=== PATIENT | female | born 1950 | race Caucasian/White ===

== ENCOUNTER 2020-05-11 12:13 | Emergency (ER) | payer OTHER, MEDICARE ==
[~2020-05-11] VITALS: Ht 162.6 cm; Wt 83.1 kg
[~2020-05-11 12:13] MED LIST: AMBIEN10 MG PO; ASPIRIN81 M1 PO; ATORVASTATIN CA10 MG PO; CALCIO DEL MAR500 MG PO; D3 DOTS2000 UNIT PO; FOLIC ACID1 MG PO; PREDNISONE20 MG PO; TREXALL10 MG PO
[2020-05-11] MEDS ORDERED: LEXAPRO5 MG PO (12:36)
[2020-05-11] MEDS ORDERED: HUMIRA10 MG/0.2 (12:36)
[2020-05-11] MEDS ORDERED: DITROPAN XL5 MG PO (12:36)
[2020-05-11] MEDS ORDERED: KETOROLAC TROMETHAMINE 60 MG/2 ML VIAL IM ONE (13:15)
[2020-05-11] MEDS ORDERED: CYCLOBENZAPRINE HCL 10 MG TAB PO ONE (13:15)
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
--- OUTSIDE RECORDS SUMMARY | 2020-05-11 14:02 | XMS REPORT | Continuity of Care Document ---
Author Author [employer] Address Unknown Phone Unavailable Care Team Providers Care Tray Packer Name Role Phone [employer] Information Exchange Unavailable Un available Problems Problem Status Onset Date Classification Date Reported Comments Source Chronic Ethmoidal Sinusitis Ac tive 11/09/2013 [facility] Chronic Maxillary Sinusitis Ac tive 11/09/2013 [facility] Asthma Active 11/09/2013 [facility] Polymyalgia Rheumatica Active 11/09/2013 [facility] Oral Thrush Active 03/22/2013 [facility] Muscle Spasm Active 11/09/2013 [facility] Insomnia Active 11/09/2013 [facility] Rheumatoid Arthritis Active 11/09/2013 [facility] Urinary Tract Infection Active 11/09/2013 [facility] Herpes Simplex Active 11/09/2013 [facility] Hyperlipidemia Active 11/09/2013 [facility] Fatigue Active 11/09/2013 [facility] Vitamin B12 Deficiency Active 11/09/2013 [facility] 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 Active 11/09/2013 [facility] Vaccines Prophylactic Need Against Influenza Active 11/09/2013 [facility] Adrenal Insufficiency Active 11/09/2013 [facility] Psoriatic Arthropathy Active 11/09/2013 [facility] Herpes Simplex Type I Active 11/09/2013 [facility] Acute Pharyngitis Active 11/09/2013 [facility] Malaise Active 11/09/2013 [facility] Medications Medication Details Route Status Patient Instructions Ordering Provider Order Date Source Amoxicillin-Pot Clavulanate 500-125 MG Oral Tablet ; Start Date: 11/09/2013; End Date: (Active) Active 11/09/2013 [facility] Acyclovir 400 MG Oral Tablet ; Start Date: 10/25/2013; End Date: (Active) Active 10/25/2013 [facility] Zovirax 5 % External Cream ; S tart Date: 10/05/2013; End Date: (Active) Active 10/05/2013 [facility] Humira Pen 40 MG/0.8ML Subcutaneous Kit ; Start Date: 08/15/2013; End Date: (Active) Active 08/15/2013 [facility] PredniSONE 5 MG Oral Tablet ; Start Date: 07/13/2013; End Date: (Active) Active 07/13/2013 [facility] Atorvastatin Calcium 10 MG Oral Tablet ; Start Date: 06/02/2013 (Active) Active 06/02/2013 [facility] Escitalopram Oxalate 10 MG Oral Tablet ; Start Date: 06/02/2013; End Date: (Active) Active 06/02/2013 [facility] TraZODone HCl 50 MG Oral Tablet ; Start Date: 06/02/2013; End Date: (Active) Active 06/02/2013 [facility] Atorvastatin Calcium 20 MG Oral Tablet ; Start Date: 06/02/2013 (Active) Active 06/02/2013 [facility] Acyclovir 200 MG Oral Capsule ; Start Date: 05/26/2013; End Date: (Active) Active 05/26/2013 [facility] Sulfamethoxazole-TMP DS 800-160 MG Oral Tablet ; Start Date: 04/20/2013; End Date: (Active) Active 04/20/2013 [facility] Azo Dine 95 MG Oral Tablet ; S tart Date: 04/20/2013 (Active) Active 04/20/2013 [facility] PredniSONE 2.5 MG Oral Tablet ; Start Date: 02/14/2013; End Date: (Active) Active 02/14/2013 [facility] Enbrel SureClick 50 MG/ML Subcutaneous Solution ; Start Date: 11/01/2012; End Date: (Active) Active 11/01/2012 [facility] PredniSONE 10 MG Oral Tablet ; Start Date: 08/09/2012; End Date: (Active) Active 08/09/2012 [facility] Methotrexate 2.5 MG Oral Tablet ; Start Date: 04/30/2012 (Active) Active 04/30/2012 [facility] Folic Acid 1 MG Oral Tablet ; Start Date: 04/30/2012; End Date: (Active) Active 04/30/2012 [facility] Cyclobenzaprine HCl 10 MG Oral Tablet ; Start Date: 04/30/2012; End Date: (Active) Active 04/30/2012 [facility] Naproxen 500 MG Oral Tablet ; Start Date: 04/30/2012; End Date: (Active) Active 04/30/2012 [facility] Zolpidem Tartrate 10 MG Oral Tablet ; Start Date: 03/19/2012 (Active) Active 03/19/2012 [facility] PredniSONE 5 MG Oral Tablet ; Start Date: 12/10/2011; End Date: (Active) Active 12/10/2011 [facility] Calcium 600 MG Oral Tablet ; S tart Date: 10/20/2011 (Active) Active 10/20/2011 [facility] Vitamin D3 TABS (Active) Active [facility] Lipitor 10 MG Oral Tablet (Ac tive) Active [facility] Vitamin D3 2000 UNIT Oral Tablet (Active) Active [facility] Ibuprofen 200 MG Oral Tablet (Active) Active [facility] Aspirin 81 MG Oral Tablet (Ac tive) Active [facility] B-12 TABS (Active) Active [facility] Allergies, Adverse Reactions, Alerts Substance Category Reaction Severity Reaction type Status Date Reported Comments Source Avelox TABS drug allergy drug allergy Active [facility] Immunizations Immunization Date Given Site Status Last Updated Comments Source Fluzone Intramuscular Injectable 06/02/2013 completed [facility] Tdap 06/24/2012 completed [facility] Hepatitis A 01/18/2009 completed [facility] Tdap completed [facility] Hepatitis A completed [facility] Pneumo completed [facility] Zostavax 61577 UNT/0.65ML Subcutaneous S olution Reconstituted completed [facility] Influenza completed [facility] Results No Data Provided for This Section Pathology Reports No Data Provided for This Section Diagnostic Reports No Data Provided for This Section Consultation Notes No Data Provided for This Section Discharge Summaries No Data Provided for This Section History and Physicals No Data Provided for This Section Vital Signs No Data Provided for This Section Encounters Location Location Details Encounter Type Encounter Number Reason For Visit Attending Provider ADM Date DC Date Status Source AUDIT [id number] 07/26/2012 07/26/2012 [facility] AUDIT [id number] 08/29/2012 08/30/2012 [facility] AUDIT [id number] 09/03/2012 09/03/2012 [facility] Kathy OCONNOR jaron: STANISLAV JOSE, Status: Pen, Time: 11:00 AM [id number] 11/01/19 13 09/03/2012 [facility] AUDIT [id number] 11/01/2012 11/02/2012 [facility] AUDIT [id number] 11/10/2012 11/11/2012 [facility] JAKEP Provi jaron: CORI RODRIGUEZ, Status: Pen, Time: 10:45 AM [id number] 11/12/19 13 11/11/2012 [facility] AUDIT [id number] 12/28/2012 12/29/2012 [facility] AUDIT [id number] 01/26/2013 01/27/2013 [facility] EST, Provi jaron: STANISLAV JOSE, Status: Pen, Time: 11:30 AM [id number] 02/08/20 13 01/27/2013 [facility] AUDIT [id number] 02/14/2013 02/15/2013 [facility] AUDIT [id number] 02/26/2013 02/27/2013 [facility] AUDIT [id number] 03/21/2013 03/22/2013 [facility] AUDIT [id number] 05/14/2013 05/14/2013 [facility] EST, Provi jaron: STANISLAV JOSE, Status: Pen, Time: 11:30 AM [id number] 05/16/20 13 05/14/2013 [facility] AUDIT [id number] 05/16/2013 05/16/2013 [facility] AUDIT [id number] 05/26/2013 05/26/2013 [facility] ECL, Provi jaron: CORI RODRIGUEZ, Status: Pen, Time: 2:00 PM [id number] 06/02/20 13 05/26/2013 [facility] AUDIT [id number] 06/05/2013 06/05/2013 [facility] AUDIT [id number] 06/09/2013 06/09/2013 [facility] AUDIT [id number] 06/10/2013 06/10/2013 [facility] AUDIT [id number] 06/20/2013 06/20/2013 [facility] AUDIT [id number] 07/17/2013 07/17/2013 [facility] AUDIT [id number] 07/23/2013 07/23/2013 [facility] EST Provi jaron: STANISLAV JOSE, Status: Pen, Time: 2:00 PM [id number] 08/15/20 13 07/23/2013 [facility] AUDIT [id number] 08/20/2013 08/20/2013 [facility] AUDIT [id number] 09/05/2013 09/05/2013 [facility] AUDIT [id number] 09/06/2013 09/06/2013 [facility] AUDIT [id number] 10/05/2013 10/05/2013 [facility] AUDIT [id number] 11/09/2013 11/09/2013 [facility] Kathy OCONNOR jaron: DAMONSTANISLAV, Status: Pen, Time: 2:00 PM [id number] 11/15/19 14 10/05/2013 [facility] Procedures No Data Provided for This Section Assessment and Plan No Data Provided for This Section Plan of Care Plan of Care Date Source [L] Lipid Profile 08/10/2013 Routine[QLH ] HEPATIC FUNCTION PANEL 08/10/2013 Routine[QLH] CREATINE KINASE, TOTAL 08/10/2013 Routine 08/20/2013 [facility] [L] Lipid Profile 08/10/2013 Routine[QLH ] HEPATIC FUNCTION PANEL 08/10/2013 Routine[QLH] CREATINE KINASE, TOTAL 08/10/2013 Routine 07/23/2013 [facility] [QLH] HEPATIC FUNCTION PANEL 08/10/2013 Routine[QLH] CREATINE KINASE, TOTAL 08/10/2013 Routine[L] Lipid Profile 08/10/2013 Routine 07/17/2013 [facility] [QLH] CORTISOL, TOTAL 06/20/2013 Routine 06/20/2013 [facility] [QLH] LIPID PANEL 06/02/2013 Routine[QLH ] TSH, 3RD GENERATION W/REFLEX TO FT4 06/02/2013 Routine[QLH] METHYLMALONIC ACID 06/02/2013 Routine 06/10/2013 [facility] [QLH] LIPID PANEL 06/02/2013 Routine[QLH ] TSH, 3RD GENERATION W/REFLEX TO FT4 06/02/2013 Routine[QLH] METHYLMALONIC ACID 06/02/2013 Routine 06/09/2013 [facility] [QLH] LIPID PANEL 06/02/2013 Routine[QLH ] TSH, 3RD GENERATION W/REFLEX TO FT4 06/02/2013 Routine[QLH] METHYLMALONIC ACID 06/02/2013 Routine 06/05/2013 [facility] Social History Social History Date Source Former Smoker (V15.82); (Active) Marital History - Single (Active) 11/09/2013 [facility] Family History No Data Provided for This Section Advance Directives Order Name Results Value Date Source Advance Directives Advance Dir ectives No Advance Directives available. 11/09/2013 [facility] Advance Directives Advance Dir ectives No Advance Directives available. 10/05/2013 [facility] Advance Directives Advance Dir ectives No Advance Directives available. 09/06/2013 [facility] Advance Directives Advance Dir ectives No Advance Directives available. 09/05/2013 [facility] Advance Directives Advance Dir ectives No Advance Directives available. 08/20/2013 [facility] Advance Directives Advance Dir ectives No Advance Directives available. 07/23/2013 [facility] Advance Directives Advance Dir ectives No Advance Directives available. 07/17/2013 [facility] Advance Directives Advance Dir ectives No Advance Directives available. 06/20/2013 [facility] Advance Directives Advance Dir ectives No Advance Directives available. 06/10/2013 [facility] Advance Directives Advance Dir ectives No Advance Directives available. 06/09/2013 [facility] Advance Directives Advance Dir ectives No Advance Directives available. 06/05/2013 [facility] Advance Directives Advance Dir ectives No Advance Directives available. 05/26/2013 [facility] Advance Directives Advance Dir ectives No Advance Directives available. 05/16/2013 [facility] Advance Directives Advance Dir ectives No Advance Directives available. 05/14/2013 [facility] Advance Directives Advance Dir ectives No Advance Directives available. 03/22/2013 [facility] Advance Directives Advance Dir ectives No Advance Directives available. 02/27/2013 [facility] Advance Directives Advance Dir ectives No Advance Directives available. 02/15/2013 [facility] Advance Directives Advance Dir ectives No Advance Directives available. 01/27/2013 [facility] Advance Directives Advance Dir ectives No Advance Directives available. 12/29/2012 [facility] Advance Directives Advance Dir ectives No Advance Directives available. 11/11/2012 [facility] Advance Directives Advance Dir ectives No Advance Directives available. 11/02/2012 [facility] Advance Directives Advance Dir ectives No Advance Directives available. 09/03/2012 [facility] Advance Directives Advance Dir ectives No Advance Directives available. 08/30/2012 [facility] Advance Directives Advance Dir ectives No Advance Directives available. 07/26/2012 [facility] Functional Status No Data Provided for This Section
--- OUTSIDE RECORDS SUMMARY | 2020-05-11 14:03 | XMS REPORT | Continuity of Care Document ---
Author Author [facility] t Organization [facility] Address [address] [place] [address] Phone Unavailable Care Team Providers Care Parking Manager Name Role Phone NOLBERTO DAVENPORT M.D. Attphys UnavailJANUSZ Haas M.D. Attphys Unavailable CAT SHANE APRN Attphys Unavailable BOUCHRA WARD P.A. Attphys Unavailable ZENIA PRATHER NP Attphys Unavailable MIKHAIL HARTMAN M.D. Attphys Unavailable JAN COLLADO M.D. Attphys Unavailable GEORGINA CHADWICK M.D. Attphys Unavailable Payers Payer Name Policy Type Policy Number Effective Date Expiration Date S ource Problems Condition Name Condition Details Condition Category Status Onset Date Resolution Date Last Treatment Date Treating Clinician Comments Source History of Abnormal liver enzymes History of Abnormal liver enzy mes Problem Resolved [facility] History of basal cell carcinoma History of basal cell carcinoma Problem Resolved [facility] History of Chronic ethmoidal sinusitis History of Chronic et hmoidal sinusitis Problem Resolved [facility] History of Chronic maxillary sinusitis History of Chronic ma xillary sinusitis Problem Resolved [facility] History of Chronic pain History of Chronic pain Problem Resolved [facility] History of diverticulitis History of diverticulitis Problem Resolved [facility] History of Dysuria History of Dysuria Problem Resolved [facility] History of fatigue History of fatigue Problem Resolved [facility] History of herpes labialis History of herpes labialis Problem Resolved [facility] History of hypercholesterolemia History of hypercholesterolemia Problem Resolved [facility] History of Malaise History of Malaise Problem Resolved [facility] History of rheumatoid arthritis History of rheumatoid arthritis Problem Resolved [facility] History of Polyp of sigmoid colon History of Polyp of sigmoid co renan Problem Resolved [facility] History of Strep tonsillitis History of Strep tonsillitis Problem Re solved [facility] History of urinary tract infection History of urinary tract infe ction Problem Resolved [facility] History of Wheezing History of Wheezing Problem Resolved [facility] Adrenal insufficiency Adrenal insufficiency Problem Active [facility] At low risk for fall At low risk for fall Problem Active [facility] Depression screening negative Depression screening negative Problem Active [facility] Insomnia Insomnia [facility] Long-term use of immunosuppressant medication Long-ter m use of immunosuppressant medication Problem Active [facility] Skin neoplasm Skin neoplasm Problem Active [facility] Umbilical hernia Umbilical hernia Problem Active [facility] Vitamin B12 deficiency Vitamin B12 deficiency Problem Active [facility] Vitamin D insufficiency Vitamin D insufficiency Problem Active [facility] Cervicalgia Cervicalgia Problem Active [facility] Actinic keratoses Actinic keratoses Problem Active [facility] Osteopenia Osteopenia [facility] Hepatic hemangioma Hepatic hemangioma Problem Active [facility] Back pain Back pain Problem Active [facility] Genital herpes Genital herpes Problem Active [facility] Asthma Asthma Problem [facility] Blurry vision, bilateral Blurry vision, bilateral Problem Active [facility] Right facial numbness Right facial numbness Problem Active [facility] BMI 30.0-30.9,adult BMI 30.0-30.9,adult Problem Active [facility] Abnormal brain CT Abnormal brain CT Problem Active [facility] Calcified cerebral meningioma Calcified cerebral meningioma Problem Active [facility] Major depressive disorder, recurrent, moderate Major d epressive disorder, recurrent, moderate Problem Active [facility] Allergic rhinitis, seasonal Allergic rhinitis, seasonal Problem Active [facility] Hyperlipidemia Hyperlipidemia Problem Active [facility] Insulin resistance Insulin resistance Problem Active [facility] Psoriatic arthropathy Psoriatic arthropathy Problem Active [facility] Urinary incontinence, mixed Urinary incontinence, mixed Problem Active [facility] Chronic Ethmoidal Sinusitis Ch ronic Ethmoidal Sinusitis Active 11/09/2013 [facility] Problem Active 2013-11-09 23:02: 12 [facility] Chronic Maxillary Sinusitis Ch ronic Maxillary Sinusitis Active 11/09/2013 [facility] Problem Active 2013-11-09 23:02: 12 Elysia Sheth Asthma Asth ma Active 11/09/2013 [facility] Problem Active 2013-11-09 23:02:12 [facility] Polymyalgia Rheumatica Poly myalgia Rheumatica Active 11/09/2013 [facility] Problem Active 2013-11-09 23:02:12 [facility] Oral Thrush Oral Thrush Active 03/22/2013 [facility] Problem Active 2013-03-22 03:50:52 Elysia Sheth Muscle Spasm Musc le Spasm Active 11/09/2013 [facility] Problem Active 2013-11-09 23:02:12 Kang riamilena Sheth Insomnia Inso mnia Active 11/09/2013 [facility] Problem Active 2013-11-09 23:02:12 [facility] Rheumatoid Arthritis Rheu matoid Arthritis Active 11/09/2013 [facility] Problem Active 2013-11-09 23:02:12 [facility] Urinary Tract Infection Urin pedro Tract Infection Active 11/09/2013 [facility] Problem Active 2013-11-09 23:02: 12 [facility] Herpes Simplex Herp es Simplex Active 11/09/2013 [facility] Problem Active 2013-11-09 [facility] Hyperlipidemia Hype rlipidemia Active 11/09/2013 [facility] Problem Active 2013-11-09 23:02:12 [facility] [place] Fatigue Fati anders Active 11/09/2013 [facility] Problem Active 2013-11-09 23:02:12 [facility] [place] Vitamin B12 Deficiency Mayra min B12 Deficiency Active 11/09/2013 [facility] Problem Active 2013-11-09 23:02:12 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 Active 11/09/2013 [facility] Problem Active 2013-11-09 23:02:12 [facility] Vaccines Prophylactic Need Against Influenza Vaccines Prophylactic Need Against Influenza Active 11/09/2013 [facility] Problem Active 2013-11-09 23:02:12 [facility] [place] Adrenal Insufficiency Adre nal Insufficiency Active 11/09/2013 [facility] Problem Active 2013-11-09 23:02:12 [facility] Psoriatic Arthropathy Psor iatic Arthropathy Active 11/09/2013 [facility] Problem Active 2013-11-09 23:02:12 [facility] Acute Pharyngitis Acut e Pharyngitis Active 11/09/2013 [facility] Problem Active 2013-11-09 23:02:12 [facility] [place] Allergies, Adverse Reactions, Alerts Allergy Name Allergy Type Status Severity Reaction(s) Onset Date Inacti ve Date Treating Clinician Comments Source methotrexate DA Active U 2019-11-09 00:00:00 [facility] No Known Contrast Allergies DA Active U 2007-01-22 00:00: 00 [facility] No Known Drug Allergies DA Active U 2007-01-22 00:00:00 [facility] No Known Food Allergies DA Active U 2007-01-22 00:00:00 [facility] No Known Other Allergies DA Active U 2007-01-22 00:00:00 [facility] Avelox TABS Allergy to drug (finding) Active [facility] methotrexate Allergy to drug (finding) Active [facility] Avelox TABS Avelox TABS Active [facility] Family History Family Member Diagnosis Comments Start Date Stop Date Source Unknown Family Member Family history of malignant neoplasm o f stomach Maternal Relatives [facility] Grandfather Family history of skin cancer [facility] Mother Family history of cerebrovascular accident [facility] Social History Social Habit Start Date Stop Date Quantity Comments Source Social History 2013-11-09 23:02:12 2013-11-09 23:02:12 [facility] Smoking Status Start Date Stop Date Source Ex-smoker (finding) [facility] Medications Ordered Medication Name Filled Medication Name Start Date Stop Da te Current Medication? Ordering Clinician Indication Dosage Frequency Signature (SIG) Comments Components Source Desloratadine 5 MG Oral Tablet Desloratadine 5 MG Oral Table t 2020-02-01 00:00:00 Yes JANUSZ LOWE M.D. QD TAKE 1 TABLET DAILY NEEDED FOR ALLERGIES. [facility] Lidocaine Viscous HCl - 2 % Mouth/Throat Solution Lido ed Viscous HCl - 2 % Mouth/Throat Solution 2019-11-09 00:00:00 Yes CAT SVITLANA COFFEE BAR ATTENDANT USE 5ML EVERY 2 HOURS NEEDED. [facility] Humira Pen 40 MG/0.8ML Subcutaneous Pen-injector Kit H umira Pen 40 MG/0.8ML Subcutaneous Pen-injector Kit 2017-12-03 00:00:00 Yes NOLBERTO DAVENPORT M.D. Inject 40 mg SC every 14 days. [facility] Ibuprofen 600 MG Oral Tablet Ibuprofen 600 MG Oral Tablet 2017-10-09 8 00:00:00 Yes NOLBERTO DAVENPORT M.D. 1 Q12H T EMELINA 1 TABLET BY MOUTH EVERY 12 HOURS NEEDED WITH FOOD FOR PAIN [facility] Tolterodine Tartrate ER 4 MG Oral Capsule Extended Rel ease 24 Hour Tolterodine Tartrate ER 4 MG Oral Capsule Extended Release 24 Hour 2015-11-01 00:00:00 Yes JANUSZ LOWE M.D. 1 QD TAKE 1 CAPSULE DAILY [facility] Vitamin D3 2000 UNIT Oral Tablet 2013-11-09 23:02:12 Yes (Active) Elysia Sheth Ibuprofen 200 MG Oral Tablet 2013-11-09 23:02:12 Yes (Active) Elysia Sheth Amoxicillin-Pot Clavulanate 500-125 MG Oral Tablet 2013-11 06:00:00 Yes ; Start Date: 11/09/2013; End Date: 09/1899 (Active) Elysia Sheth Acyclovir 400 MG Oral Tablet 2013-10-25 06:00:00 Yes ; Start Date: 10/25/2013; End Date: (Active) Elysia Sheth Aspirin 81 MG Oral Tablet 2013-10-05 18:31:20 Yes (Active) Elysia Sheth B-12 TABS 2013-10-05 18:31:20 Yes (Active) Elysia Sheth Zovirax 5 % External Cream 2013-10-05 06:00:00 Yes ; Start Date: 10/05/2013; End Date: (Active) Elysia Sheth Humira Pen 40 MG/0.8ML Subcutaneous Kit 2013-08-15 06:00:00 Yes ; Start Date: 08/15/2013; End Date: (Active) Elysia Sheth PredniSONE 5 MG Oral Tablet 2013-07-13 06:00:00 Yes ; Start Date: 07/13/2013; End Date: (Active) Elysia Sheth Atorvastatin Calcium 10 MG Oral Tablet 2013-06-02 05:00:00 Yes ; Start Date: 06/02/2013 (Active) Elysia Sheth Escitalopram Oxalate 10 MG Oral Tablet 2013-06-02 05:00:00 Yes ; Start Date: 06/02/2013; End Date: (Active) Elysia Sheth TraZODone HCl 50 MG Oral Tablet 2013-06-02 05:00:00 Yes ; Start Date: 06/02/2013; End Date: (Active) [facility] Atorvastatin Calcium 20 MG Oral Tablet 2013-06-02 05:00:00 Yes ; Start Date: 06/02/2013 (Active) Elysia Sheth Atorvastatin Calcium 20 MG Oral Tablet Atorvastatin Calcium 20 MG Oral Tablet 2013-06-02 00:00:00 Yes JANUSZ LOWE M.D. QD TAKE 1 TABLET AT BEDTIME. [facility] Escitalopram Oxalate 10 MG Oral Tablet Escitalopram Oxalate 10 MG Oral Tablet 2013-06-02 00:00:00 Yes JANUSZ LOWE M.D. 1 QD JUAN RAMON E 1 TABLET DAILY [facility] Acyclovir 200 MG Oral Capsule 2013-05-26 05:00:00 Yes ; Start Date: 05/26/2013; End Date: (Active) Elysia Sheth Sulfamethoxazole-TMP DS 800-160 MG Oral Tablet 2013-04-20 05:00: 00 Yes ; Start Date: 04/20/2013; End Date: (Active ) Elysia Sheth Azo Dine 95 MG Oral Tablet 2013-04-20 05:00:00 Yes ; Start Date: 04/20/2013 (Active) Elysia Sheth PredniSONE 2.5 MG Oral Tablet 2013-02-14 05:00:00 Yes ; Start Date: 02/14/2013; End Date: (Active) Elysia Sheth Enbrel SureClick 50 MG/ML Subcutaneous Solution 2012-11-01 06:00 :00 Yes ; Start Date: 11/01/2012; End Date: (Active ) Elysia Sheth Vitamin D3 TABS 2012-08-30 02:34:53 Yes (Ac tive) Elysia Sheth PredniSONE 10 MG Oral Tablet 2012-08-09 06:00:00 Yes ; Start Date: 08/09/2012; End Date: (Active) Elysia Domenic Lipitor 10 MG Oral Tablet 2012-07-26 22:44:12 Yes (Active) Elysia Sheth Methotrexate 2.5 MG Oral Tablet 2012-04-30 05:00:00 Yes ; Start Date: 04/30/2012 (Active) Elysia sullivan Folic Acid 1 MG Oral Tablet 2012-04-30 05:00:00 Yes ; Start Date: 04/30/2012; End Date: (Active) Elysia Sheth Cyclobenzaprine HCl 10 MG Oral Tablet 2012-04-30 05:00:00 Y es ; Start Date: 04/30/2012; End Date: (Active) Elysia Sheth Naproxen 500 MG Oral Tablet 2012-04-30 05:00:00 Yes ; Start Date: 04/30/2012; End Date: (Active) Elysia Sheth Zolpidem Tartrate 10 MG Oral Tablet 2012-03-19 05:00:00 Yes ; Start Date: 03/19/2012 (Active) Elysia sullivan PredniSONE 5 MG Oral Tablet 2011-12-10 05:00:00 Yes ; Start Date: 12/10/2011; End Date: (Active) Elysia Sheth Calcium 600 MG Oral Tablet 2011-10-20 06:00:00 Yes ; Start Date: 10/20/2011 (Active) [facility] [place] Vitamin D3 50 MCG (2000 UT) Oral Tablet Vitamin D3 50 MCG (2 000 UT) Oral Tablet Yes PT. TAKING TAB. QD [facility] Calcium 600 + D TABS Calcium 600 + D TABS Yes 1 QD TAKE 1 TABLET DAILY. [facility] Immunizations Ordered Immunization Name Filled Immunization Name Date Status Comments Source Fluzone High-Dose 0.5 ML Intramuscular Suspension Prefilled Syringe 2019-06-22 00:00:00 Completed [facility] Pneumovax 23 25 MCG/0.5ML Injection Injectable 2018-06 12:16:00 Completed [facility] Fluzone High-Dose SUSP 2018-05-26 00:00:00 Completed [facility] Fluzone High-Dose 0.5 ML Intramuscular Suspension Prefilled Syringe 2018-05-08 00:00:00 Completed [facility] Fluzone Quadrivalent 0.5 ML Intramuscular Suspension 2017-05-29 00:00:00 Completed [facility] Fluzone High-Dose SUSP 2017-05-29 00:00:00 Completed [facility] Fluzone High-Dose SUSP 2016-07-16 15:30:00 Completed [facility] Prevnar 13 Intramuscular Suspension 2015-11-01 15:38:00 Co mpleted [facility] Fluzone High-Dose SUSP 2015-09-17 00:00:00 Completed [facility] Fluzone INJ 2014-07-13 00:00:00 [facility]pleted [facility] Fluzone INJ 2013-06-02 00:00:00 Completed [facility] [place] [facility] Zostavax 60377 UNT/0.65ML Subcutaneous Solution Reconstitute d 2012-11-11 00:00:00 Completed [facility] Tdap 2012-06-24 00:00:00 Completed [facility] [place] [facility] Pneumo 2011-07-09 00:00:00 Completed [facility] Influenza 2011-07-09 00:00:00 Completed [facility] Hepatitis A 2010-01-14 00:00:00 Completed [facility] Hepatitis A 2009-01-18 00:00:00 Completed [facility] Shingrix 50 MCG/0.5ML Intramuscular Suspension Reconstituted Unknown Completed 01/20/2019 @ [facility] Shingrix 50 MCG/0.5ML Intramuscular Suspension Reconstituted Unknown Completed 03/23/2019 @ [facility] Vital Signs Vital Name Observation Time Observation Value Comments Source Systolic blood pressure 2020-03-29 13:52:00 101 mm[Hg] Loca tion: PAULO; Position: Sitting [facility] Diastolic blood pressure 2020-03-29 13:52:00 63 mm[Hg] Loc ation: LEONELAE; Position: Sitting [facility] Body height 2020-03-29 13:52:00 64 [in_us] [facility] Weight 2020-03-29 13:52:00 184 [lb_av] [facility] Body mass index (BMI) [Ratio] 2020-03-29 13:52:00 31.58 kg/m2 [facility] Body temperature 2020-03-29 13:52:00 97.3 [degF] Method: Temporal [facility] Heart Rate 2020-03-29 13:52:00 70 /min [facility] Systolic blood pressure 2020-02-01 10:41:00 122 mm[Hg] Loca tion: LUE; Position: Sitting [facility] Diastolic blood pressure 2020-02-01 10:41:00 73 mm[Hg] Loc ation: LUE; Position: Sitting [facility] Body height 2020-02-01 10:41:00 64 [in_us] [facility] Weight 2020-02-01 10:41:00 182.25 [lb_av] [facility] Body mass index (BMI) [Ratio] 2020-02-01 10:41:00 31.28 kg/m2 [facility] Body temperature 2020-02-01 10:41:00 98.4 [degF] Method: Oral [facility] Heart Rate 2020-02-01 10:41:00 75 /min Location: L Brachial Artery; [facility] Systolic blood pressure 2019-11-17 09:53:00 108 mm[Hg] Loca tion: LUE; Position: Sitting [facility] Diastolic blood pressure 2019-11-17 09:53:00 64 mm[Hg] Loc ation: LUE; Position: Sitting [facility] Body height 2019-11-17 09:53:00 64 [in_us] [facility] Weight 2019-11-17 09:53:00 178.375 [lb_av] [facility] Body mass index (BMI) [Ratio] 2019-11-17 09:53:00 30.62 kg/m2 [facility] Body temperature 2019-11-17 09:53:00 97.8 [degF] Method: Oral [facility] Heart Rate 2019-11-17 09:53:00 76 /min Location: L Radial; Q uality: Normal [facility] Systolic blood pressure 2019-11-09 08:07:00 103 mm[Hg] Loca tion: LUE; Position: Sitting [facility] Diastolic blood pressure 2019-11-09 08:07:00 63 mm[Hg] Loc ation: LUE; Position: Sitting [facility] Body height 2019-11-09 08:07:00 64 [in_us] [facility] Weight 2019-11-09 08:07:00 176.0625 [lb_av] [facility] Body mass index (BMI) [Ratio] 2019-11-09 08:07:00 30.22 kg/m2 [facility] Body temperature 2019-11-09 08:07:00 97 [degF] Method: Temporal [facility] Heart Rate 2019-11-09 08:07:00 73 /min [facility] Respiratory rate 2019-11-09 08:07:00 16 /min [facility] Systolic blood pressure 2019-11-03 16:25:00 96 mm[Hg] Loca tion: LUE; Position: Sitting [facility] Diastolic blood pressure 2019-11-03 16:25:00 60 mm[Hg] Loc ation: LUE; Position: Sitting [facility] Body height 2019-11-03 16:25:00 64 [in_us] [facility] Weight 2019-11-03 16:25:00 177.0625 [lb_av] [facility] Body mass index (BMI) [Ratio] 2019-11-03 16:25:00 30.39 kg/m2 [facility] Body temperature 2019-11-03 16:25:00 98 [degF] Method: [facility] Heart Rate 2019-11-03 16:25:00 102 /min [facility] Respiratory rate 2019-11-03 16:25:00 16 /min [facility] Systolic blood pressure 2019-11-01 08:46:00 125 mm[Hg] Loca tion: LUE; Position: Sitting [facility] Diastolic blood pressure 2019-11-01 08:46:00 71 mm[Hg] Loc ation: LUE; Position: Sitting [facility] Body height 2019-11-01 08:46:00 64 [in_us] [facility] Weight 2019-11-01 08:46:00 176 [lb_av] [facility] Body mass index (BMI) [Ratio] 2019-11-01 08:46:00 30.21 kg/m2 [facility] Body temperature 2019-11-01 08:46:00 97.8 [degF] Method: Temporal [facility] Heart Rate 2019-11-01 08:46:00 70 /min Quality: Normal [facility] BP Systolic 2019-07-26 10:07:00 118 mm[Hg] Location: PAULO; Positi on: Sitting [facility] BP Diastolic 2019-07-26 10:07:00 62 mm[Hg] Location: PAULO; Positi on: Sitting [facility] O2 SAT 2019-07-26 10:07:00 97 % Source: RA [facility] Height 2019-07-26 10:07:00 64 [in_us] [facility] Weight 2019-07-26 10:07:00 178.375 [lb_av] [facility] Body Mass Index Calculated 2019-07-26 10:07:00 30.62 kg/m2 [facility] Temperature 2019-07-26 10:07:00 98.3 [degF] [facility] Heart Rate 2019-07-26 10:07:00 71 /min Location: L Brachial Artery; [facility] BP Systolic 2019-07-22 10:48:00 102 mm[Hg] Location: PAULO; Positi on: Sitting [facility] BP Diastolic 2019-07-22 10:48:00 70 mm[Hg] Location: PAULO; Positi on: Sitting [facility] Height 2019-07-22 10:48:00 64 [in_us] [facility] Weight 2019-07-22 10:48:00 177 [lb_av] [facility] Body Mass Index Calculated 2019-07-22 10:48:00 30.38 kg/m2 [facility] Temperature 2019-07-22 10:48:00 97.9 [degF] Method: Temporal [facility] Heart Rate 2019-07-22 10:48:00 76 /min [facility] Respiration Rate 2019-07-22 10:48:00 16 /min [facility] BP Systolic 2019-04-21 14:32:00 110 mm[Hg] Location: PAULO; Positi on: Sitting [facility] BP Diastolic 2019-04-21 14:32:00 70 mm[Hg] Location: LUE; Positi on: Sitting [facility] Height 2019-04-21 14:32:00 64 [in_us] [facility] Weight 2019-04-21 14:32:00 173 [lb_av] [facility] Body Mass Index Calculated 2019-04-21 14:32:00 29.7 kg/m2 [facility] Temperature 2019-04-21 14:32:00 98 [degF] Method: Oral [facility] Heart Rate 2019-04-21 14:32:00 64 /min [facility] BP Systolic 2019-01-20 11:33:00 112 mm[Hg] Location: LEONELAE; Positi on: Sitting [facility] BP Diastolic 2019-01-20 11:33:00 67 mm[Hg] Location: LUE; Positi on: Sitting [facility] Height 2019-01-20 11:33:00 64 [in_us] [facility] Weight 2019-01-20 11:33:00 178.125 [lb_av] [facility] Body Mass Index Calculated 2019-01-20 11:33:00 30.58 kg/m2 [facility] Temperature 2019-01-20 11:33:00 98.1 [degF] Method: Temporal [facility] Respiration Rate 2019-01-20 11:33:00 16 /min [facility] Heart Rate 2019-01-20 11:33:00 74 /min [facility] BP Systolic 2018-09-25 09:29:00 111 mm[Hg] Location: LEONELAE; Positi on: Sitting [facility] BP Diastolic 2018-09-25 09:29:00 69 mm[Hg] Location: LUE; Positi on: Sitting [facility] Height 2018-09-25 09:29:00 64 [in_us] Universi ty [facility] Temperature 2018-09-25 09:29:00 98.6 [degF] Method: Temporal [facility] Heart Rate 2018-09-25 09:29:00 82 /min [facility] [place] [facility] Respiration Rate 2018-09-25 09:29:00 16 /min [facility] BP Systolic 2018-09-11 09:48:00 145 mm[Hg] Location: LUE; Positi on: Sitting [facility] BP Diastolic 2018-09-11 09:48:00 79 mm[Hg] Location: LEONELAE; Positi on: Sitting [facility] Heart Rate 2018-09-11 09:48:00 90 /min Location: L Radial; [facility] BP Systolic 2018-09-11 09:47:00 145 mm[Hg] Location: LEONELAE; Positi on: Sitting [facility] BP Diastolic 2018-09-11 09:47:00 80 mm[Hg] Location: LUE; Positi on: Sitting [facility] Heart Rate 2018-09-11 09:47:00 90 /min Location: L Radial; [facility] Height 2018-09-11 09:47:00 64 [in_us] [facility] [place] [facility] Weight 2018-09-11 09:47:00 189 [lb_av] [facility] Body Mass Index Calculated 2018-09-11 09:47:00 32.44 kg/m2 [facility] Temperature 2018-09-11 09:47:00 99.2 [degF] Method: Oral [facility] BP Systolic 2018-08-25 14:51:00 129 mm[Hg] Location: PAULO; Positi on: Sitting [facility] BP Diastolic 2018-08-25 14:51:00 69 mm[Hg] Location: LEONELAE; Positi on: Sitting [facility] Height 2018-08-25 14:51:00 64 [in_us] [facility] Weight 2018-08-25 14:51:00 189 [lb_av] [facility] Body Mass Index Calculated 2018-08-25 14:51:00 32.44 kg/m2 [facility] Heart Rate 2018-08-25 14:51:00 74 /min [facility] BP Systolic 2018-07-09 14:35:00 108 mm[Hg] Location: LEONELAE; Positi on: Sitting [facility] BP Diastolic 2018-07-09 14:35:00 71 mm[Hg] Location: LUE; Positi on: Sitting [facility] Height 2018-07-09 14:35:00 64 [in_us] [facility] [place] [facility] Weight 2018-07-09 14:35:00 184.4375 [lb_av] [facility] Body Mass Index Calculated 2018-07-09 14:35:00 31.66 kg/m2 [facility] Temperature 2018-07-09 14:35:00 97.8 [degF] Method: Temporal [facility] Heart Rate 2018-07-09 14:35:00 71 /min Location: L Brachial Artery; [facility] Respiration Rate 2018-07-09 14:35:00 16 /min Quality: [facility] BP Systolic 2018-06-23 11:41:00 115 mm[Hg] Location: LEONELAE; Positi on: Sitting [facility] BP Diastolic 2018-06-23 11:41:00 67 mm[Hg] Location: PAULO; Positi on: Sitting [facility] Height 2018-06-23 11:41:00 64 [in_us] Universi ty [facility] Weight 2018-06-23 11:41:00 183 [lb_av] [facility] [place] [facility] Body Mass Index Calculated 2018-06-23 11:41:00 31.41 kg/m2 [facility] Temperature 2018-06-23 11:41:00 97.6 [degF] Method: Temporal [facility] Heart Rate 2018-06-23 11:41:00 73 /min [facility] [place] [facility] Respiration Rate 2018-06-23 11:41:00 16 /min [facility] BP Systolic 2018-03-03 11:32:00 119 mm[Hg] Location: PAULO; Positi on: Sitting [facility] BP Diastolic 2018-03-03 11:32:00 69 mm[Hg] Location: PAULO; Positi on: Sitting [facility] Height 2018-03-03 11:32:00 64.5 [in_us] Universi ty [facility] Weight 2018-03-03 11:32:00 188.1875 [lb_av] [facility] Body Mass Index Calculated 2018-03-03 11:32:00 31.8 kg/m2 [facility] Temperature 2018-03-03 11:32:00 98 [degF] Method: Oral [facility]i ty [facility] Heart Rate 2018-03-03 11:32:00 75 /min [facility] [place] [facility] BP Systolic 2017-12-18 15:57:00 108 mm[Hg] Location: LUE; Positi on: Sitting [facility] BP Diastolic 2017-12-18 15:57:00 68 mm[Hg] Location: LUE; Positi on: Sitting [facility] Height 2017-12-18 15:57:00 64.5 [in_us] [facility] [place] [facility] Weight 2017-12-18 15:57:00 178.4375 [lb_av] [facility] Body Mass Index Calculated 2017-12-18 15:57:00 30.16 kg/m2 [facility] Temperature 2017-12-18 15:57:00 96.4 [degF] Method: Temporal [facility] Heart Rate 2017-12-18 15:57:00 73 /min [facility] [place] [facility] Respiration Rate 2017-12-18 15:57:00 16 /min [facility] BP Systolic 2017-11-04 11:31:00 117 mm[Hg] Location: LUE; Positi on: Sitting [facility] BP Diastolic 2017-11-04 11:31:00 66 mm[Hg] Location: LUE; Positi on: Sitting [facility] Height 2017-11-04 11:31:00 64.5 [in_us] [facility] [place] [facility] Weight 2017-11-04 11:31:00 182 [lb_av] [facility] Body Mass Index Calculated 2017-11-04 11:31:00 30.76 kg/m2 [facility] Temperature 2017-11-04 11:31:00 98.2 [degF] Method: Oral [facility] Heart Rate 2017-11-04 11:31:00 71 /min [facility] BP Systolic 2017-09-09 09:33:00 115 mm[Hg] Location: LUE; Positi on: Sitting [facility] BP Diastolic 2017-09-09 09:33:00 61 mm[Hg] Location: LUE; Positi on: Sitting [facility] Height 2017-09-09 09:33:00 64.5 [in_us] [facility] [place] [facility] Weight 2017-09-09 09:33:00 181 [lb_av] [facility] Body Mass Index Calculated 2017-09-09 09:33:00 30.59 kg/m2 [facility] Temperature 2017-09-09 09:33:00 97.4 [degF] Method: Oral [facility]i ty [facility] Respiration Rate 2017-09-09 09:33:00 16 /min [facility] Heart Rate 2017-09-09 09:33:00 71 /min Universi ty [facility] BP Systolic 2017-08-07 12:44:00 117 mm[Hg] Universi ty [facility] BP Diastolic 2017-08-07 12:44:00 79 mm[Hg] Universi ty [facility] Height 2017-08-07 12:44:00 64.5 [in_us] Universi ty [facility] Weight 2017-08-07 12:44:00 181 [lb_av] Universi ty [facility] Body Mass Index Calculated 2017-08-07 12:44:00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 Item Value Reference Range Interpretation Comments REFLEXIVE URINE CULTURE (test code = REFLEXIVE URINE C ULTURE) CULTURE INDICATED - RESULTS TO FOLLOW [facility]] CBC (INCLUDES DIFF/PLT)2019-11-01 09:30:00* Test Item Value Reference Range Interpretation Comments WHITE BLOOD CELL COUNT (test code = WHITE BLOOD CELL COUNT) 6.9 {Thousand/u} 3.8-10.8 N RED BLOOD CELL COUNT (test code = RED BLOOD CELL COUNT) 5.64 {Million/uL} 3.80-5.10 HEMAGLOBIN; Normal (test code = 77036-8) 14.8 g/dl 11.7-15.5 N HEMATOCRIT; Above High Threshold (test code = 4544-3) 46.7 % 35.0-45.0 MCV; Normal (test code = 787-2) 82.8 fL 80.0-100.0 N MCHC; Below Low Threshold (test code = 96848-2) 31.7 g/dl 32.0-3 6.0 RDW; Normal (test code = 788-0) 14.1 % 11.0-15.0 N PLATELET COUNT; Normal (test code = 777-3) 233 {Thousand/u} 140-400 N MPV; Normal (test code = 66823-1) 11.8 fL 7.5-12.5 N ABSOLUTE NEUTROPHILS (test code = ABSOLUTE NEUTROPHILS) 3326 {cells/uL} 7518-8514 N ABSOLUTE LYMPHOCYTES (test code = ABSOLUTE LYMPHOCYTES) 2891 {cells/uL} 850-3900 N ABSOLUTE MONOCYTES (test code = ABSOLUTE MONOCYTES) 476 {cells/uL} 200-950 N ABSOLUTE EOSINOPHILS (test code = ABSOLUTE EOSINOPHILS) 159 {cells/ uL} 15-500 N ABSOLUTE BASOPHILS (test code = ABSOLUTE BASOPHILS) 48 {cells/uL} 0 -200 N NEUTROPHILS (test code = NEUTROPHILS) 48.2 % N LYMPHOCYTES (test code = LYMPHOCYTES) 41.9 % N MONOCYTES; Normal (test code = 80225-3) 6.9 % N EOSINOPHILS; Normal (test code = 93683-9) 2.3 % N BASOPHILS; Normal (test code = 11224-0) 0.7 % N [facility]] TSH, 3RD GENERATION W/REFLEX TO FT4 2019-11-01 09:30:00* Test Item Value Reference Range Interpretation Comments TSH, 3RD GENERATION W/REFLEX TO FT4 (maria victoria t code = TSH, 3RD GENERATION W/REFLEX TO FT4) 2.57 {MIU/L} 0.40-4.50 N [facility]] CULTURE, URINE, [id number] 09:30:00* Test Item Value Reference Range Interpretation Comments CULTURE (test code = CULTURE) See Comment CULTURE, URINE, ROUTINE Micro Number: [id number] Test Status: Final Specimen Source: URINE Specimen Quality: Adequate Result: Single organism less than 10,000 CFU/mL isolated. These organisms, commonly found on external and internal genitalia, are considered colonizers. No further testing performed. [facility][O] Flu Test (in Office )2019-07-26 10:28:00* Test Item Value Reference Range Interpretation Comments Flu A (test code = Flu A) Negative N [facility][O] Streptococcus Test Rapid (In Office)2019-07-26 10:13:00* Test Item Value Reference Range Interpretation Comments Group A Strep Screen; Normal (test code = 58820-3) Negative N [facility] Bone Density [employer] [id number] 10:12:00BONE DENSITY ASSESSMENT: 06/22/2019CLINICAL DATA: Post menopausal. Other Specified Disorders Of Bone Density AndStructure, Unspecified Site << No Exact Match >>/M85.80FINDINGS:Bone density evaluation was performed 06/22/2019 on the right femur neck usinga Hologic unit. The BMD average for the exam is 0.649 g/cm2. The T-score is-1.80. This matches the World Health Organization's criteria for osteopeniaand places the patient at a medium risk for fracture. An additional bone density evaluation was performed 06/22/2019 on the leftfemur neck using a Hologic unit. The BMD average for the exam is 0.702 g/cm2.The T- score is -1.30 and the Z-score is 0.50. This matches the World HealthOrganization's criteria for osteopenia and places the patient at a medium riskfor fracture. An additional bone density evaluation was performed 06/22/2019 on the right hipusing a Hologic unit. The BMD average for the exam is 0.828 g/cm2. The T-scoreis -0.90 and the Z-score is 0.60. This matches the World Health Organization'scriteria for normal bone density and places the patient within normal limits offracture risk. An additional bone density evaluation was performed 06/22/2019 on the left hipusing a Hologic unit. The BMD average for the exam is 0.856 g/cm2. The T-scoreis -0.70 and the Z-score is 0.80. This matches the World Health Organization'scriteria for normal bone density and places the patient within normal limits offracture risk. An additional bone density evaluation was performed 06/22/2019 on the AP L1-S7fepqgr of spine using a Hologic unit. The BMD average for the exam is 0.981 g/cm2. The T-score is - 0.60 and the Z-score is 1.50. This matches the WorldHealth Organization's criteria for normal bone density and places the patientwithin normal limits of fracture risk. FRAX 10 year probability of major osteoporotic fracture is 13% and hip fractureis 2%. IMPRESSION: OSTEOPENIAPatient is at medium risk for fracture. This exam was interpreted [id number] for JOSE Mack 15. Oseas Goetz M.D. cm/penderek:06/23/2019 08:17:23 Software Technician(s): Ade SANTOS(Adore)(M), [facility]--Read by: Mckinley Rojas MDDictated Da te/time: 06/23/19 08:17Electronically Signed by: Mckinley Rojas MD 06/23/1908:17FINAL REPORTUnSanpete Valley Hospital [facility]] SED RATE BY HUMBERTO [id number] 09:10:00* Test Item Value Reference Range Interpretation Comments SED RATE BY HUMBERTO FOURNIERREN (test code = SED RATE BY HUMBERTO VELASCO) 6 mm/h < OR = 30 N [facility]] CBC (INCLUDES DIFF/PLT)2019-03-09 09:10:00* Test Item Value Reference Range Interpretation Comments WHITE BLOOD CELL COUNT (test code = WHITE BLOOD CELL COUNT) 6.6 {Thousand/u} 3.8-10.8 N RED BLOOD CELL COUNT (test code = RED BLOOD CELL COUNT) 5.47 {Million/uL} 3.80-5.10 HEMAGLOBIN; Normal (test code = 27435-9) 14.6 g/dl 11.7-15.5 N HEMATOCRIT; Above High Threshold (test code = 4544-3) 45.7 % 35.0-45.0 MCV; Normal (test code = 787-2) 83.5 fL 80.0-100.0 N MCHC; Below Low Threshold (test code = 17562-0) 31.9 g/dl 32.0-3 6.0 RDW; Normal (test code = 788-0) 13.6 % 11.0-15.0 N PLATELET COUNT; Normal (test code = 777-3) 236 {Thousand/u} 140-400 N MPV; Normal (test code = 95239-9) 11.7 fL 7.5-12.5 N ABSOLUTE NEUTROPHILS (test code = ABSOLUTE NEUTROPHILS) 3841 {cells/uL} 9300-8098 N ABSOLUTE LYMPHOCYTES (test code = ABSOLUTE LYMPHOCYTES) 2152 {cells/uL} 850-3900 N ABSOLUTE MONOCYTES (test code = ABSOLUTE MONOCYTES) 469 {cells/uL} 200-950 N ABSOLUTE EOSINOPHILS (test code = ABSOLUTE EOSINOPHILS) 99 {cells/u L} 15-500 N ABSOLUTE BASOPHILS (test code = ABSOLUTE BASOPHILS) 40 {cells/uL} 0 -200 N NEUTROPHILS (test code = NEUTROPHILS) 58.2 % N LYMPHOCYTES (test code = LYMPHOCYTES) 32.6 % N MONOCYTES; Normal (test code = 52476-9) 7.1 % N EOSINOPHILS; Normal (test code = 92830-0) 1.5 % N BASOPHILS; Normal (test code = 86982-7) 0.6 % N [facility]] C-REACTIVE [id number] 09:10:00* Test Item Value Reference Range Interpretation Comments C-REACTIVE PROTEIN (test code = C-REACTIVE PROTEIN) 1.4 mg/L <8 .0 N [facility]] VITAMIN D, 25-HYDROXY, LC/MS/[id number] 09:10:00* Test Item Value Reference Range Interpretation Comments VITAMIN D,25-OH,TOTAL,IA (test code = VITAMIN D,25-OH,TOTAL,IA) 37 ng/ml 30-100 N Vitamin D Status 25-OH Vitamin D : Deficiency: <20 ng/mLInsufficiency: 20 - 29 ng/mLOptimal: > or = 30 ng/mL For 25-OH Vitamin D testing on patients on D2-supplementation and patients for whom quantitation of D2 and D3 fractions is required, the QuestAssureD(TM)25-OH VIT D, (D2,D3), LC/MS/MS is recommended: order code 98838 (patients >2yrs). For more information on this test, go to:http://WestWing.i.Sec/faq/IKM370(This link is being provided for informational/educational purposes only.) [facility][Q] QUANTIFERON( R)-TB GOLD PLUS, 1 [id number] 09:10:00* Test Item Value Reference Range Interpretation Comments QUANTIFERON( R)-TB GOLD PLUS, 1 TUBE (te st code = QUANTIFERON( R)-TB GOLD PLUS, 1 TUBE) NEGATIVE NEGATIVE N Negative test re sult. M. tuberculosis complex infection unlikely. NIL (test code = NIL) 0.03 {IU/ml} N MITOGEN-NIL (test code = MITOGEN-NIL) >10.00 N TB1-NIL (test code = TB1-NIL) 0.07 {IU/ml} N TB2-NIL (test code = TB2-NIL) 0.04 {IU/ml} N The Nil tube value reflects the background interferongamma immune response of the patient's blood sample.This value has been subtracted from the patient'sdisplayed TB and Mitogen results. Lower than expected results with the Mitogen tubeprevent false-negative Quantiferon readings bydetecting a patient with a potential immunesuppressive condition and/or suboptimal pre-analyticalspecimen handling. The TB1 Antigen tube is coated with theM. tuberculosis-specific antigens designed to elicitresponses from TB antigen primed CD4+ helperT-lymphocytes. The TB2 Antigen tube is coated with theM. tuberculosis-specific antigens designed to elicitresponses from TB antigen primed CD4+ helper and CD8+cytotoxic T- lymphocytes. For additional information, please refer tohttps://education.i.Sec/faq/DNK374(This link is being provided for informational/educational purposes only.) [facility] Digital Mammo Screen Bob sanchez [id number] 13:43:00BILATERAL DIGITAL SCREENING MAMMOGRAM 3D/2D WITH CAD: 02/16/2019CLINICAL: Routine/Z12.31. Current study was evaluated with a Computer Aided Detection (CAD) system. COMPARISON:Comparison is made to exams dated: 02/03/2018 mammogram - [facility], 01/07/2017 mammogram, 12/19/2015 mammogram, and 03/16/2014mammogram - [facility]. TECHNIQUE: Digital Breast Tomosynthesis was performed and utilized forInterpretation. Current study was also evaluated with a Computer AidedDetection (CAD) system.FINDINGS:There are scattered fibroglandular densities in both breasts. There are benign vascular calcifications in the left breast. No significant masses, calcifications, or other findings are seen in eitherbreast. There has been no significant interval change.IMPRESSION: BENIGNRECOMMENDATION:There is no mammographic evidence of malignancy. A 1 yearscreening mammogram is recommended.(02/17/2020) This exam was interpreted [id number] for Martha, SL 15. Professional services are provided by the [facility].Modesta De Los Santos M.D. ms/penrad:08/2019 14:29:14 Software Technician(s): RT Ruth(Adore)(M), [facility] sent: BI-RADS 1/2 Mammogram BI-RADS: 2 Benign--Read by: Modesta De Los Santos MDDictated Date/time: 02/16/19 14:29Electronically Signed by: Modesta Ellis MD 02/16/1914:29FINAL REPORTUnSanpete Valley Hospital [facility][] LIPID PANEL WITH REFLEX TO DIRECT [id number] 09:25:00* Test Item Value Reference Range Interpretation Comments CHOLESTEROL, TOTAL; Normal (test code = 2093-3) 163 mg/dl <200 N HDL CHOLESTEROL; Normal (test code = 2085-9) 51 mg/dl >50 N TRIGLYCERIDES; Normal (test code = 2571-8) 109 mg/dl <150 N LDL-CHOLESTEROL; Normal (test code = 41044-3) 91 {MG/DL MARGARITA} N Reference range: <100 Desirable range <100 mg/dL for primary prevention; <70 mg/dL for patients with CHD or diabetic patients with > or = 2 CHD risk factors. LDL-C is now calculated using the Jonny calculation, which is a validated novel method providing better accuracy than the Friedewald equation in the estimation of LDL-C. Kyle SS et al. HANG. 2013;310(19): 5191-5174 (http ://education.[employer]/faq/JRA849) CHOL/HDLC RATIO (test code = CHOL/HDLC RATIO) 3.2 {CALC} <5.0 N NON HDL CHOLESTEROL (test code = NON HDL CHOLESTEROL) 112 {MG/DL C AL} <130 N For patients with diabetes plus 1 major ASCVD risk factor, treating to a non-HDL-C goal of <100 mg/dL (LDL-C of <70 mg/dL) is considered a therapeutic option. [facility]] CMP [id number] 09:25:00* Test Item Value Reference Range Interpretation Comments GLUCOSE; Above High Threshold (test code = 1547-9) 108 mg/dl 65- 99 Fasting reference interval For someone without known diabetes, a glucose valuebetween 100 and 125 mg/dL is consistent withprediabetes and should be confirmed with afollow-up test. UREA NITROGEN (BUN) (test code = UREA NITROGEN (BUN)) 16 mg/dl 7-25 N CREATININE (test code = CREATININE) 0.92 mg/dl 0.60-0.93 N For patients >49 years of age, the reference limitfor Creatinine is approximately 13% higher for peopleidentified as -Haitian. eGFR NON- (test code = eGFR NON-KATE N GREENLANDIC) 63 {ML/MIN/1.7} > OR = 60 N eGFR (test code = eGFR ) 73 {ML/MIN/1.7} > OR = 60 N BUN/CREATININE RATIO (test code = BUN/CREATININE RATIO) NOT APPLICA BLE 6-22 SODIUM (test code = SODIUM) 140 mmol/L 135-146 N POTASSIUM (test code = POTASSIUM) 4.2 mmol/L 3.5-5.3 N CHLORIDE (test code = CHLORIDE) 103 mmol/L 98-110 N CARBON DIOXIDE (test code = CARBON DIOXIDE) 28 mmol/L 20-32 N CALCIUM (test code = CALCIUM) 9.5 mg/dl 8.6-10.4 N PROTEIN, TOTAL (test code = PROTEIN, TOTAL) 7.2 g/dl 6.1-8.1 N ALBUMIN (test code = ALBUMIN) 4.2 g/dl 3.6-5.1 N GLOBULIN (test code = GLOBULIN) 3.0 {G/DL CALC} 1.9-3.7 N ALBUMIN/GLOBULIN RATIO (test code = ALBUMIN/GLOBULIN RATIO) 1.4 {CALC} 1.0-2.5 N BILIRUBIN, TOTAL; Normal (test code = 59778-0) 0.5 mg/dl 0.2-1.2 N ALKALINE PHSPHATASE (test code = ALKALINE PHSPHATASE) 90 u/l 33-130 N AST; Normal (test code = 1916-6) 21 u/l 10-35 N ALT; Normal (test code = 1742-6) 25 u/l 6-29 N [facility][O] Streptococcus Test Rapid (In Office)2018-09-25 10:06:00* Test Item Value Reference Range Interpretation Comments Group A Strep Screen; Abnormal (test code = 27300-4) POSITIVE A [facility][O] Streptococcus Test Rapid (In Office)2018-09-11 11:23:00* Test Item Value Reference Range Interpretation Comments Group A Strep Screen; Abnormal (test code = 88672-9) Positive A [facility][O] Flu Test (in Office )2018-09-11 11:23:00* Test Item Value Reference Range Interpretation Comments Flu A (test code = Flu A) neg N Flu B (test code = Flu B) neg N [facility]] CMP [id number] 15:21:00* Test Item Value Reference Range Interpretation Comments GLUCOSE; Normal (test code = 1547-9) 109 mg/dl 65-139 N Non-fasting reference interval UREA NITROGEN (BUN) (test code = UREA NITROGEN (BUN)) 12 mg/dl 7-25 N CREATININE (test code = CREATININE) 0.83 mg/dl 0.50-0.99 N For patients >49 years of age, the reference limitfor Creatinine is approximately 13% higher for peopleidentified as -Haitian. eGFR NON- (test code = eGFR NON-KATE N GREEN[place]) 72 {ML/MIN/1.7} > OR = 60 N eGFR (test code = eGFR ) 83 {ML/MIN/1.7} > OR = 60 N BUN/CREATININE RATIO (test code = BUN/CREATININE RATIO) NOT APPLICA BLE 6-22 SODIUM (test code = SODIUM) 143 mmol/L 135-146 N POTASSIUM (test code = POTASSIUM) 4.3 mmol/L 3.5-5.3 N CHLORIDE (test code = CHLORIDE) 104 mmol/L 98-110 N CARBON DIOXIDE (test code = CARBON DIOXIDE) 31 mmol/L 20-32 N CALCIUM (test code = CALCIUM) 9.0 mg/dl 8.6-10.4 N PROTEIN, TOTAL (test code = PROTEIN, TOTAL) 6.7 g/dl 6.1-8.1 N ALBUMIN (test code = ALBUMIN) 4.0 g/dl 3.6-5.1 N GLOBULIN (test code = GLOBULIN) 2.7 {G/DL CALC} 1.9-3.7 N ALBUMIN/GLOBULIN RATIO (test code = ALBUMIN/GLOBULIN RATIO) 1.5 {CALC} 1.0-2.5 N BILIRUBIN, TOTAL; Normal (test code = 36621-7) 0.3 mg/dl 0.2-1.2 N ALKALINE PHSPHATASE (test code = ALKALINE PHSPHATASE) 87 u/l 33-130 N AST; Normal (test code = 1916-6) 14 u/l 10-35 N ALT; Normal (test code = 1742-6) 17 u/l 6-29 N [facility]] SED RATE BY MODIFIED [id number] 15:21:00* Test Item Value Reference Range Interpretation Comments SED RATE BY MODIFIED WESTERGREN (test code = SED RATE BY MODIFIED WESTERGREN) 11 mm/h < OR = 30 N [facility]] CBC (INCLUDES DIFF/PLT)2018-08-25 15:21:00* Test Item Value Reference Range Interpretation Comments WHITE BLOOD CELL COUNT (test code = WHITE BLOOD CELL COUNT) 6.9 {Thousand/u} 3.8-10.8 N RED BLOOD CELL COUNT (test code = RED BLOOD CELL COUNT) 5.32 {Million/uL} 3.80-5.10 HEMAGLOBIN; Normal (test code = 25525-6) 14.2 g/dl 11.7-15.5 N HEMATOCRIT; Normal (test code = 4544-3) 44.0 % 35.0-45.0 N MCV; Normal (test code = 787-2) 82.7 fL 80.0-100.0 N MCHC; Normal (test code = 49087-3) 32.3 g/dl 32.0-36.0 N RDW; Normal (test code = 788-0) 14.0 % 11.0-15.0 N PLATELET COUNT; Normal (test code = 777-3) 249 {Thousand/u} 140-400 N MPV; Normal (test code = 17466-7) 10.8 fL 7.5-12.5 N ABSOLUTE NEUTROPHILS (test code = ABSOLUTE NEUTROPHILS) 3650 {cells/uL} 3745-2630 N ABSOLUTE LYMPHOCYTES (test code = ABSOLUTE LYMPHOCYTES) 2615 {cells/uL} 850-3900 N ABSOLUTE MONOCYTES (test code = ABSOLUTE MONOCYTES) 462 {cells/uL} 200-950 N ABSOLUTE EOSINOPHILS (test code = ABSOLUTE EOSINOPHILS) 152 {cells/ uL} 15-500 N ABSOLUTE BASOPHILS (test code = ABSOLUTE BASOPHILS) 21 {cells/uL} 0 -200 N NEUTROPHILS (test code = NEUTROPHILS) 52.9 % N LYMPHOCYTES (test code = LYMPHOCYTES) 37.9 % N MONOCYTES; Normal (test code = 79978-6) 6.7 % N EOSINOPHILS; Normal (test code = 67533-3) 2.2 % N BASOPHILS; Normal (test code = 18907-7) 0.3 % N [facility]] C-REACTIVE [id number] 15:21:00* Test Item Value Reference Range Interpretation Comments C-REACTIVE PROTEIN (test code = C-REACTIVE PROTEIN) 1.4 mg/L <8 .0 N [facility]] CMP [id number] 12:14:00* Test Item Value Reference Range Interpretation Comments GLUCOSE; Normal (test code = 1547-9) 80 mg/dl 65-139 N Non-fasting reference interval UREA NITROGEN (BUN) (test code = UREA NITROGEN (BUN)) 15 mg/dl 7-25 N CREATININE (test code = CREATININE) 0.85 mg/dl 0.50-0.99 N For patients >49 years of age, the reference limitfor Creatinine is approximately 13% higher for peopleidentified as -Haitian. eGFR NON- (test code = eGFR NON-KATE N [place]) 70 {ML/MIN/1.7} > OR = 60 N eGFR (test code = eGFR ) 81 {ML/MIN/1.7} > OR = 60 N BUN/CREATININE RATIO (test code = BUN/CREATININE RATIO) NOT APPLICA BLE 6-22 SODIUM (test code = SODIUM) 139 mmol/L 135-146 N POTASSIUM (test code = POTASSIUM) 4.5 mmol/L 3.5-5.3 N CHLORIDE (test code = CHLORIDE) 104 mmol/L 98-110 N CARBON DIOXIDE (test code = CARBON DIOXIDE) 29 mmol/L 20-31 N CALCIUM (test code = CALCIUM) 9.0 mg/dl 8.6-10.4 N PROTEIN, TOTAL (test code = PROTEIN, TOTAL) 6.5 g/dl 6.1-8.1 N ALBUMIN (test code = ALBUMIN) 3.8 g/dl 3.6-5.1 N GLOBULIN (test code = GLOBULIN) 2.7 {G/DL CALC} 1.9-3.7 N ALBUMIN/GLOBULIN RATIO (test code = ALBUMIN/GLOBULIN RATIO) 1.4 {CALC} 1.0-2.5 N BILIRUBIN, TOTAL; Normal (test code = 94846-7) 0.5 mg/dl 0.2-1.2 N ALKALINE PHSPHATASE (test code = ALKALINE PHSPHATASE) 71 u/l 33-130 N AST; Normal (test code = 1916-6) 13 u/l 10-35 N ALT; Normal (test code = 1742-6) 14 u/l 6-29 N [facility]] SED RATE BY MODIFIED [id number] 12:14:00* Test Item Value Reference Range Interpretation Comments SED RATE BY MODIFIED WESTERGREN (test code = SED RATE BY MODIFIED WESTERGREN) 4 mm/h < OR = 30 N [facility]] CBC (INCLUDES DIFF/PLT)2018-03-03 12:14:00* Test Item Value Reference Range Interpretation Comments WHITE BLOOD CELL COUNT (test code = WHITE BLOOD CELL COUNT) 6.2 {Thousand/u} 3.8-10.8 N RED BLOOD CELL COUNT (test code = RED BLOOD CELL COUNT) 5.30 {Million/uL} 3.80-5.10 HEMOGLOBIN; Normal (test code = 96117-3) 14.0 g/dl 11.7-15.5 N HEMATOCRIT; Normal (test code = 4544-3) 43.4 % 35.0-45.0 N MCV; Normal (test code = 787-2) 81.9 fL 80.0-100.0 N MCHC; Normal (test code = 08483-6) 32.3 g/dl 32.0-36.0 N RDW; Normal (test code = 788-0) 13.5 % 11.0-15.0 N PLATELET COUNT; Normal (test code = 777-3) 238 {Thousand/u} 140-400 N MPV; Normal (test code = 80392-5) 11.5 fL 7.5-12.5 N ABSOLUTE NEUTROPHILS (test code = ABSOLUTE NEUTROPHILS) 3137 {cells/uL} 9969-0340 N ABSOLUTE LYMPHOCYTES (test code = ABSOLUTE LYMPHOCYTES) 2325 {cells/uL} 850-3900 N ABSOLUTE MONOCYTES (test code = ABSOLUTE MONOCYTES) 589 {cells/uL} 200-950 N ABSOLUTE EOSINOPHILS (test code = ABSOLUTE EOSINOPHILS) 112 {cells/ uL} 15-500 N ABSOLUTE BASOPHILS (test code = ABSOLUTE BASOPHILS) 37 {cells/uL} 0 -200 N NEUTROPHILS (test code = NEUTROPHILS) 50.6 % N LYMPHOCYTES (test code = LYMPHOCYTES) 37.5 % N MONOCYTES; Normal (test code = 41380-3) 9.5 % N EOSINOPHILS; Normal (test code = 52398-1) 1.8 % N BASOPHILS; Normal (test code = 85453-6) 0.6 % N [facility]] C-REACTIVE [id number] 12:14:00* Test Item Value Reference Range Interpretation Comments C-REACTIVE PROTEIN (test code = C-REACTIVE PROTEIN) 1.5 mg/L <8 .0 N [facility]] VITAMIN D, 25-HYDROXY, LC/MS/[id number] 12:14:00* Test Item Value Reference Range Interpretation Comments VITAMIN D,25-OH,TOTAL,IA (test code = VITAMIN D,25-OH,TOTAL,IA) 40 ng/ml 30-100 N Vitamin D Status 25-OH Vitamin D : Deficiency: <20 ng/mLInsufficiency: 20 - 29 ng/mLOptimal: > or = 30 ng/mL For 25-OH Vitamin D testing on patients on D2-supplementation and patients for whom quantitation of D2 and D3 fractions is required, the QuestAssureD(TM)25-OH VIT D, (D2,D3), LC/MS/MS is recommended: order code 77959 (patients >2yrs). For more information on this test, go to:http://[employer].i.Sec/faq/UMQ170(This link is being provided for informational/educational purposes only.) [facility][] QUANTIFERON(R)-TB [id number] 12:14:00* Test Item Value Reference Range Interpretation Comments QUANTIFERON(R)-TB GOLD (test code = QUANTIFERON(R)-TB GOLD) NEGATIV E NEGATIVE N Negative test result. M. tuberculosis complex infection unlikely. NIL (test code = NIL) 0.04 {IU/ml} N MITOGEN-NIL (test code = MITOGEN-NIL) >10.00 N TB-NIL (test code = TB-NIL) 0.01 {IU/ml} N The Nil tube value is used to determine if the patienthas a preexisting immune response which could cause a false-positive reading on the test. In order for a test to be valid, the Nil tube must have a value of less than or equal to 8.0 IU/mL. The mitogen control tube is used to assure the patient has a healthy immune status and also serves as a control for correct blood handling and incubation. It is used to detect false-negative readings. The mitogen tube must have a gamma interferon value of greater than or equal to 0.5 IU/mL higher than the value of the Nil tube. The TB antigen tube is coated with the M. tuberculosisspecific antigens. For a test to be considered positive, the TB antigen tube value minus the Nil tube value must be greater than or equal to 0.35 IU/mL. For additional information, please refer to http://[employer].i.Sec/faq/QFT(This link is being provided for informational/educational purposes only.) [facility] Digital Mammo Screen Bob sanchez [id number] 16:54:00BILATERAL DIGITAL SCREENING MAMMOGRAM 3D/2D WITH CAD: 02/03/2018CLINICAL: /Routine. Current study was evaluated with a Computer Aided Detection (CAD) system. COMPARISON:Comparison is made to exams dated: 01/07/2017 mammogram, 12/19/2015mammogram, 03/16/2014 mammogram, and 08/04/2011 mammogram - [facility]. TECHNIQUE: Digital Breast Tomosynthesis was performed and utilized forInterpretation. Current study was also evaluated with a Computer AidedDetection (CAD) system.FINDINGS:There are scattered fibroglandular densities in both breasts. There is a stable benign global asymmetry in the left breast. There also arestable benign vascular calcifications in the left breast. No significant masses, calcifications, or other findings are seen in eitherbreast. There has been no significant interval change.IMPRESSION: BENIGNRECOMMENDATION:There is no mammographic evidence of malignancy. A 1 yearscreening mammogram is recommended.(02/04/2019) This exam was interpreted [id number] for JOSE John 15. Professional services are provided by the [facility] WishonDivision of Diagnostic Imaging.Erin Easley M.D. ak/penderek:02/05/2018 08:54:44 Software Technician(s): Meagan Sanchez [facility] sent: BI-RADS 1/2 Mammogram BI-RADS: 2 Benign--Read by: Erin Easley MDDictated Date/time: 02/05/18 08:54Electronically Signed by: Erin Easley MD 8:54FINAL REPORTUnSanpete Valley Hospital Physicians[] LIPID PANEL WITH REFLEX TO DIRECT [id number] 09:52:00* Test Item Value Reference Range Interpretation Comments CHOLESTEROL, TOTAL; Normal (test code = 2093-3) 160 mg/dl <200 N HDL CHOLESTEROL; Normal (test code = 2085-9) 58 mg/dl >50 N TRIGLYCERIDES; Normal (test code = 2571-8) 84 mg/dl <150 N LDL-CHOLESTEROL; Normal (test code = 70089-9) 85 {MG/DL MARGARITA} N Reference range: <100 Desirable range <100 mg/dL for primary prevention; <70 mg/dL for patients with CHD or diabetic patients with > or = 2 CHD risk factors. LDL-C is now calculated using the Jonny calculation, which is a validated novel method providing better accuracy than the Friedewald equation in the estimation of LDL-C. Kyle ZEPEDA et al. HANG. 2013;310(19): 5476-2679 (http ://education.[employer]/faq/ALA933) CHOL/HDLC RATIO (test code = CHOL/HDLC RATIO) 2.8 {CALC} <5.0 N NON HDL CHOLESTEROL (test code = NON HDL CHOLESTEROL) 102 {MG/DL C AL} <130 N For patients with diabetes plus 1 major ASCVD risk factor, treating to a non-HDL-C goal of <100 mg/dL (LDL-C of <70 mg/dL) is considered a therapeutic option. [facility]] CMP [id number] 09:52:00* Test Item Value Reference Range Interpretation Comments GLUCOSE; Above High Threshold (test code = 1547-9) 102 mg/dl 65- 99 Fasting reference interval For someone without known diabetes, a glucose valuebetween 100 and 125 mg/dL is consistent withprediabetes and should be confirmed with afollow-up test. UREA NITROGEN (BUN) (test code = UREA NITROGEN (BUN)) 17 mg/dl 7-25 N CREATININE (test code = CREATININE) 0.90 mg/dl 0.50-0.99 N For patients >49 years of age, the reference limitfor Creatinine is approximately 13% higher for peopleidentified as -Haitian. eGFR NON- (test code = eGFR NON-KATE N [place]) 65 {ML/MIN/1.7} > OR = 60 N eGFR (test code = eGFR ) 76 {ML/MIN/1.7} > OR = 60 N BUN/CREATININE RATIO (test code = BUN/CREATININE RATIO) NOT APPLICA BLE 6-22 SODIUM (test code = SODIUM) 140 mmol/L 135-146 N POTASSIUM (test code = POTASSIUM) 4.5 mmol/L 3.5-5.3 N CHLORIDE (test code = CHLORIDE) 106 mmol/L 98-110 N CARBON DIOXIDE (test code = CARBON DIOXIDE) 25 mmol/L 20-31 N CALCIUM (test code = CALCIUM) 8.9 mg/dl 8.6-10.4 N PROTEIN, TOTAL (test code = PROTEIN, TOTAL) 6.3 g/dl 6.1-8.1 N ALBUMIN (test code = ALBUMIN) 3.7 g/dl 3.6-5.1 N GLOBULIN (test code = GLOBULIN) 2.6 {G/DL CALC} 1.9-3.7 N ALBUMIN/GLOBULIN RATIO (test code = ALBUMIN/GLOBULIN RATIO) 1.4 {CALC} 1.0-2.5 N BILIRUBIN, TOTAL; Normal (test code = 02972-4) 0.4 mg/dl 0.2-1.2 N ALKALINE PHSPHATASE (test code = ALKALINE PHSPHATASE) 72 u/l 33-130 N AST; Normal (test code = 1916-6) 11 u/l 10-35 N ALT; Normal (test code = 1742-6) 12 u/l 6-29 N [facility] PhysiciansTobacco Use [id number] 16:00:00* Test Item Value Reference Range Interpretation Comments Completed (test code = Completed) DONE [facility]] CMP [id number] 12:09:00* Test Item Value Reference Range Interpretation Comments GLUCOSE; Above High Threshold (test code = 1547-9) 110 mg/dl 65- 99 Fasting reference interval For someone without known diabetes, a glucose valuebetween 100 and 125 mg/dL is consistent withprediabetes and should be confirmed with afollow-up test. UREA NITROGEN (BUN) (test code = UREA NITROGEN (BUN)) 13 mg/dl 7-25 N CREATININE (test code = CREATININE) 0.95 mg/dl 0.50-0.99 N For patients >49 years of age, the reference limitfor Creatinine is approximately 13% higher for peopleidentified as -Haitian. eGFR NON- (test code = eGFR NON-KATE N [place]) 61 {ML/MIN/1.7} > OR = 60 N eGFR (test code = eGFR ) 71 {ML/MIN/1.7} > OR = 60 N BUN/CREATININE RATIO (test code = BUN/CREATININE RATIO) NOT APPLICA BLE 6-22 SODIUM (test code = SODIUM) 142 mmol/L 135-146 N POTASSIUM (test code = POTASSIUM) 4.6 mmol/L 3.5-5.3 N CHLORIDE (test code = CHLORIDE) 108 mmol/L 98-110 N CARBON DIOXIDE (test code = CARBON DIOXIDE) 29 mmol/L 20-31 N CALCIUM (test code = CALCIUM) 9.3 mg/dl 8.6-10.4 N PROTEIN, TOTAL (test code = PROTEIN, TOTAL) 6.5 g/dl 6.1-8.1 N ALBUMIN (test code = ALBUMIN) 3.9 g/dl 3.6-5.1 N GLOBULIN (test code = GLOBULIN) 2.6 {G/DL CALC} 1.9-3.7 N ALBUMIN/GLOBULIN RATIO (test code = ALBUMIN/GLOBULIN RATIO) 1.5 {CALC} 1.0-2.5 N BILIRUBIN, TOTAL; Normal (test code = 30543-6) 0.4 mg/dl 0.2-1.2 N ALKALINE PHSPHATASE (test code = ALKALINE PHSPHATASE) 77 u/l 33-130 N AST; Normal (test code = 1916-6) 16 u/l 10-35 N ALT; Normal (test code = 1742-6) 15 u/l 6-29 N [facility]] SED RATE BY MODIFIED [id number] 12:09:00* Test Item Value Reference Range Interpretation Comments SED RATE BY MODIFIED WESTERGREN (test code = SED RATE BY MODIFIED WESTERGREN) 2 mm/h < OR = 30 N [facility]] CBC (INCLUDES DIFF/PLT)2017-11-04 12:09:00* Test Item Value Reference Range Interpretation Comments WHITE BLOOD CELL COUNT (test code = WHITE BLOOD CELL COUNT) 5.2 {Thousand/u} 3.8-10.8 N RED BLOOD CELL COUNT (test code = RED BLOOD CELL COUNT) 5.49 {Million/uL} 3.80-5.10 HEMOGLOBIN; Normal (test code = 12145-7) 14.6 g/dl 11.7-15.5 N HEMATOCRIT; Above High Threshold (test code = 4544-3) 45.6 % 35.0-45.0 MCV; Normal (test code = 787-2) 83.1 fL 80.0-100.0 N MCHC; Normal (test code = 21203-7) 32.0 g/dl 32.0-36.0 N RDW; Normal (test code = 788-0) 13.2 % 11.0-15.0 N PLATELET COUNT; Normal (test code = 777-3) 207 {Thousand/u} 140-400 N MPV; Normal (test code = 88432-3) 12.1 fL 7.5-12.5 N ABSOLUTE NEUTROPHILS (test code = ABSOLUTE NEUTROPHILS) 2761 {cells/uL} 9333-9952 N ABSOLUTE LYMPHOCYTES (test code = ABSOLUTE LYMPHOCYTES) 1804 {cells/uL} 850-3900 N ABSOLUTE MONOCYTES (test code = ABSOLUTE MONOCYTES) 473 {cells/uL} 200-950 N ABSOLUTE EOSINOPHILS (test code = ABSOLUTE EOSINOPHILS) 120 {cells/ uL} 15-500 N ABSOLUTE BASOPHILS (test code = ABSOLUTE BASOPHILS) 42 {cells/uL} 0 -200 N NEUTROPHILS (test code = NEUTROPHILS) 53.1 % N LYMPHOCYTES (test code = LYMPHOCYTES) 34.7 % N MONOCYTES; Normal (test code = 12705-1) 9.1 % N EOSINOPHILS; Normal (test code = 97819-4) 2.3 % N BASOPHILS; Normal (test code = 62808-7) 0.8 % N [facility]] C-REACTIVE [id number] 12:09:00* Test Item Value Reference Range Interpretation Comments C-REACTIVE PROTEIN (test code = C-REACTIVE PROTEIN) 1.4 mg/L <8 .0 N [facility]
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
[2020-05-11] MEDS ORDERED: CYCLOBENZAPRINE5 MG PO (15:12)
[2020-05-11] MEDS ORDERED: PREDNISONE20 MG PO (15:12)
[2020-05-11 15:30] VITALS: BP 143/72
== END 2020-05-11 15:29 | disposition home or self-care (01) ==
LOC: FSED 12:37
DX: S43.402A Unspecified sprain of left shoulder joint, initial encounter (principal); S40.012A Contusion of left shoulder, initial encounter; R07.89 Other chest pain; V43.52XA Car driver injured in collision with other type car in traffic accident, initial encounter; Y92.488 Other paved roadways as the place of occurrence of the external cause; E78.5 Hyperlipidemia, unspecified; M06.9 Rheumatoid arthritis, unspecified; F41.9 Anxiety disorder, unspecified
CPT/HCPCS: 71046; 73030; 96372; 99283; J1885